=== PATIENT | male | born 1990 | race African-American/Black ===

== ENCOUNTER 2022-12-17 15:09 | Emergency (ER) | payer MEDICAID ==
[~2022-12-17] VITALS: Ht 175.3 cm; Wt 72.0 kg
[2022-12-17] MEDS ORDERED: IBUPROFEN 600MG TABLET PO ONE (17:00)
[2022-12-17] MEDS ORDERED: NAPR-1176 MT (17:32)
[2022-12-17 17:48] VITALS: BP 135/71
== END 2022-12-17 17:49 | disposition home or self-care (01) ==
LOC: ER 15:09
DX: S39.012A Strain of muscle, fascia and tendon of lower back, initial encounter (principal); S16.1XXA Strain of muscle, fascia and tendon at neck level, initial encounter; S20.212A Contusion of left front wall of thorax, initial encounter; S40.012A Contusion of left shoulder, initial encounter; V49.9XXA Car occupant (driver) (passenger) injured in unspecified traffic accident, initial encounter; Y93.89 Activity, other specified; Y92.89 Other specified places as the place of occurrence of the external cause; Y99.8 Other external cause status
CPT/HCPCS: 71045; 73000; 99284